=== PATIENT | male | born 1950 | race Caucasian/White ===

== ENCOUNTER 2017-02-05 22:17 | Observation (INO) | payer OTHER ==
[~2017-02-05] VITALS: Ht 170.2 cm; Wt 79.2 kg
[2017-02-05 22:52] LABS: HEMATOCRIT 44.3 % (38.0-50.0); MCH 30.2 PG (29.0-34.0); MCHC 33.6 G/DL (30.0-36.0); MCV 89.9 FL (86-99); MEAN PLAT.VOLUME 10.7 uM^3 (9.0-12.4); PLATELET COUNT 267 K/uL (156-360); RBC DIS.WIDTH-CV 12.4 % (11.8-14.6); RBC DIS.WIDTH-SD 40.9 % (39-53); RED BLOOD COUNT 4.93 M/uL (4.00-5.50); WHITE BLOOD COUNT 11.6 K/uL (4.1-10.2)
[2017-02-05 23:02] LABS: CHLORIDE 105 mEq/L (99-109); POTASSIUM 3.5 mEq/L (3.7-5.4); SODIUM 142 mEq/L (136-147)
[2017-02-05 23:04] LABS: GLUCOSE 110 mg/dL (70-99)
[2017-02-05 23:05] LABS: ANION GAP 12 MEQ/L (2-14)
[2017-02-05 23:08] LABS: GFR ESTIMATE (CALCULATED) > 59 mL/min/; UREA NITROGEN (BUN) 20 mg/dL (9-23)
[2017-02-05 23:13] LABS: TROP-I INTERPRETATION NEGATIVE; TROPONIN-I 0.02 ng/mL (0.0-0.30)
[2017-02-06] MEDS ORDERED: DIOVAN HCT 11 TABLET PO (00:43)
[2017-02-06] MEDS ORDERED: ZOFRAN8 MG PO (00:43)
[2017-02-06] MEDS ORDERED: LOPRESSOR25 MG PO (00:43)
[2017-02-06] MEDS ORDERED: ZOCOR20 MG PO (00:44)
[2017-02-06] MEDS ORDERED: FUROSEMIDE20 MG PO (00:44)
[2017-02-06] MEDS ORDERED: IMDUR30 MG PO (00:44)
[2017-02-06] MEDS ORDERED: LITE COAT ASPI325 M1 PO (00:44)
[2017-02-06] MEDS ORDERED: COLACE100 MG PO (00:45)
[2017-02-06] MEDS ORDERED: BENADRYL ALLERG25 MG PO (00:45)
[2017-02-06 04:20] VITALS: BP 141/64
[2017-02-06 04:22] VITALS: BP 116/62; BP 123/58
[2017-02-06 05:47] LABS: TROP-I INTERPRETATION NEGATIVE; TROPONIN-I < 0.01 ng/mL (0.0-0.30)
[2017-02-06 07:43] VITALS: BP 118/55
[2017-02-06 12:09] VITALS: BP 116/53
[2017-02-06 14:37] LABS: TROP-I INTERPRETATION NEGATIVE; TROPONIN-I < 0.01 ng/mL (0.0-0.30)
[2017-02-06 16:15] VITALS: BP 130/61
== END 2017-02-06 19:46 | disposition home or self-care (01) ==
LOC: EME 22:17 → 4EAST 02-06 02:40 → EDOF 02-06 02:40 → 4EAST 02-06 02:40 → ENRESERV 02-06 02:45 → 4EAST 02-06 04:13
PROVIDERS: Family Medicine
DX: I25.111 Atherosclerotic heart disease of native coronary artery with angina pectoris with documented spasm (principal); R06.02 Shortness of breath; I11.9 Hypertensive heart disease without heart failure; Z95.1 Presence of aortocoronary bypass graft; I25.2 Old myocardial infarction; I44.7 Left bundle-branch block, unspecified; E78.5 Hyperlipidemia, unspecified; J44.1 Chronic obstructive pulmonary disease with (acute) exacerbation; R09.02 Hypoxemia; I27.20 Pulmonary hypertension, unspecified; Z87.891 Personal history of nicotine dependence; Z82.49 Family history of ischemic heart disease and other diseases of the circulatory system
CPT/HCPCS: 71020; 71250; 80048; 83605; 83880; 84484; 85027; 87040; 90686; 93005; 93306; 94640; 94640 76; 94799; 99202; 99281; 99285; G0378; J0456; J0696; J2930; J7050

== ENCOUNTER 2017-08-28 14:28 | Emergency (ER) | payer OTHER ==
[~2017-08-28] VITALS: Ht 170.2 cm; Wt 78.7 kg
[~2017-08-28 14:28] MED LIST: BENADRYL ALLERG25 MG PO; COLACE100 MG PO; DIOVAN HCT 11 TABLET PO; FUROSEMIDE20 MG PO; IMDUR30 MG PO; LITE COAT ASPI325 M1 PO; LOPRESSOR25 MG PO; ZOCOR20 MG PO; ZOFRAN8 MG PO
[2017-08-28 17:29] VITALS: BP 126/70
== END 2017-08-28 17:47 | disposition home or self-care (01) ==
LOC: EME 14:28
DX: M19.90 Unspecified osteoarthritis, unspecified site (principal); R06.02 Shortness of breath; I11.0 Hypertensive heart disease with heart failure; I50.9 Heart failure, unspecified; E78.5 Hyperlipidemia, unspecified; I25.2 Old myocardial infarction; Z95.1 Presence of aortocoronary bypass graft; Z95.0 Presence of cardiac pacemaker; Z88.5 Allergy status to narcotic agent; Z88.6 Allergy status to analgesic agent; Z87.891 Personal history of nicotine dependence
CPT/HCPCS: 93005; 93971; 94640; 99281; 99284

== ENCOUNTER 2017-10-24 13:04 | Observation (INO) | payer OTHER ==
[~2017-10-24] VITALS: Ht 170.2 cm; Wt 81.0 kg
[2017-10-24 13:36] LABS: HEMATOCRIT 44.7 % (38.0-50.0); HEMOGLOBIN 14.9 G/DL (12.5-16.6); MCH 30.7 PG (29.0-34.0); MCHC 33.3 G/DL (30.0-36.0); PLATELET COUNT 237 K/uL (156-360); RBC DIS.WIDTH-SD 43.7 % (39-53); RED BLOOD COUNT 4.86 M/uL (4.00-5.50); WHITE BLOOD COUNT 11.2 K/uL (4.1-10.2)
[2017-10-24 13:45] LABS: CHLORIDE 105 mEq/L (99-109); POTASSIUM 3.3 mEq/L (3.7-5.4); SODIUM 145 mEq/L (136-147)
[2017-10-24 13:46] LABS: GLUCOSE 111 mg/dL (70-99)
[2017-10-24 13:50] LABS: CREATININE 1.3 mg/dL (0.6-1.3); GFR ESTIMATE (CALCULATED) 58 mL/min/ (58.99-99999)
[2017-10-24 13:51] LABS: UREA NITROGEN (BUN) 18 mg/dL (9-23)
[2017-10-24 13:57] LABS: TROP-I INTERPRETATION NEGATIVE; TROPONIN-I 0.01 ng/mL (0.0-0.30)
[2017-10-24] MEDS ORDERED: BENADRYL25 MG PO (15:21)
[2017-10-24 20:13] VITALS: BP 167/80
[2017-10-25 04:26] VITALS: BP 116/58
[2017-10-25 05:42] LABS: HEMATOCRIT 40.9 % (38.0-50.0); HEMOGLOBIN 13.5 G/DL (12.5-16.6); MCH 30.2 PG (29.0-34.0); MCV 91.5 FL (86-99); PLATELET COUNT 214 K/uL (156-360); RBC DIS.WIDTH-CV 12.9 % (11.8-14.6); RBC DIS.WIDTH-SD 43.7 % (39-53); RED BLOOD COUNT 4.47 M/uL (4.00-5.50); WHITE BLOOD COUNT 7.8 K/uL (4.1-10.2)
[2017-10-25 06:11] LABS: CHLORIDE 106 MEQ/L (99-109); GFR ESTIMATE (CALCULATED) > 59 mL/min/ (58.99-99999); GLUCOSE 96 mg/dL (70-99); POTASSIUM 3.5 MEQ/L (3.7-5.4); SODIUM 143 MEQ/L (136-147); UREA NITROGEN (BUN) 17 mg/dL (9-23)
[2017-10-25 08:31] VITALS: BP 132/62
[2017-10-25 11:21] LABS: TROP-I INTERPRETATION NEGATIVE; TROPONIN-I < 0.01 ng/mL (0.0-0.30)
[2017-10-25 11:26] VITALS: BP 130/60
[2017-10-25] MEDS ORDERED: DUONEB 2.5-0.5 M3 ML AEROSOL (12:50)
[2017-10-25] MEDS ORDERED: CLOPIDOGREL75 MG PO (12:51)
[2017-10-25] MEDS ORDERED: PANTOPRAZOLE SO40 MG PO (12:52)
== END 2017-10-25 14:32 | disposition home or self-care (01) ==
LOC: EME 13:04 → EDOF 17:04 → ENRESERV 17:12 → 4SOUTH 20:02
PROVIDERS: Internal Medicine
DX: R07.89 Other chest pain (principal); I25.110 Atherosclerotic heart disease of native coronary artery with unstable angina pectoris; Z95.1 Presence of aortocoronary bypass graft; J44.1 Chronic obstructive pulmonary disease with (acute) exacerbation; I44.7 Left bundle-branch block, unspecified; I27.20 Pulmonary hypertension, unspecified; I65.29 Occlusion and stenosis of unspecified carotid artery; R13.10 Dysphagia, unspecified; I11.9 Hypertensive heart disease without heart failure; G47.30 Sleep apnea, unspecified; E78.5 Hyperlipidemia, unspecified; M19.90 Unspecified osteoarthritis, unspecified site; Z87.891 Personal history of nicotine dependence; Z82.49 Family history of ischemic heart disease and other diseases of the circulatory system; Z79.82 Long term (current) use of aspirin; Z88.5 Allergy status to narcotic agent; Z88.6 Allergy status to analgesic agent
CPT/HCPCS: 71046; 80048; 84484; 85027; 93005; 94640; 94799; 99281; 99285; G0378; J1650; J7030